=== PATIENT | male | born 1955 | race Asian ===

== ENCOUNTER 2018-08-23 08:21 | Emergency (ER) | payer OTHER ==
[~2018-08-23] VITALS: Ht 182.9 cm; Wt 88.9 kg
[2018-08-23 10:57] VITALS: BP 120/81; TEMP 98
== END 2018-08-23 10:58 | disposition home or self-care (01) ==
LOC: ED 08:21
DX: J32.8 Other chronic sinusitis (principal)
CPT/HCPCS: 87502; 87651; 99284; J0696; J1100

== ENCOUNTER 2018-12-04 08:22 | Outpatient (CLI) | payer OTHER | END 2018-12-04 19:10 | disposition home or self-care (01) | LOC: LAB 08:22 | DX: K64.0 First degree hemorrhoids (principal) | CPT/HCPCS: 82272 ==